=== PATIENT | female | born 1960 | race Caucasian/White ===

== ENCOUNTER 2016-08-28 18:12 | Inpatient (IN) | payer OTHER ==
[~2016-08-28] VITALS: Ht 165.1 cm; Wt 103.9 kg
[~2016-08-28 18:12] MED LIST: VIBRAMYCIN100 MG PO
--- NOTE | 2016-08-28 18:38 | NUR ---
C/O FEELING DEPRESSED, + SI, DENIES HI. OVERDOSED ON PILLS AWHILE AGO. STATES SHE HAS BEEN SOBER FOR 13 YEARS, BUT WANTS TO OUT AND DRINK NOW. ALSO STATES SHE HAS CHRONIC PAIN ALL OVER.
--- NOTE | 2016-08-28 18:50 | NUR ---
SECURITY AT BEDSIDE FOR WANDING AND PATIENT CHANGED INTO BLUE SCRUBS.
--- NOTE | 2016-08-28 18:50 | NUR ---
PT BROUGHT SELF TO ER DUE TO INCREASED DEPRESSION AND NOT FEELING SAFE AT HOME. PT REPORTS SHE HAS ONE PRIOR OVERDOSE AND HAS THOUGHT ABOUT CRASHING HER CAR IN ORDER TO HURT SELF. 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 PT DENIES HI OR SH URGES. PT REPORTS OVER THE LAST FEW WEEKS SHE HAS HAD POOR SLEEP WITH FREQUENT AWAKENINGS AND LOW APPETITE. PT STATES SHE HAS BEEN SOBER FROM ALCOHOL FOR 13.5 YEARS AND DOES NOT USE DRUGS.
--- NOTE | 2016-08-28 19:00 | ED PSYCHIATRIC COMPLAINT ---
See Addendum History of Present Illness General Chief Complaint: Psychiatric Related Complaint Stated Complaint: DEPRESSED +SI Source: patient Exam Limitations: no limitations Vital Signs & Intake/Output Vital Signs & Intake/Output Vital Signs Date Time Temp Pulse Resp B/P B/P Pulse O2 O2 Flow FiO2 Mean Ox Delivery Rate 09/03 0736 97.3 78 140/90 09/02 2006 98.1 88 142/88 09/02 1548 73 120/68 09/02 1243 56 148/81 Triage Note: C/O FEELING DEPRESSED, + SI, DENIES HI. OVERDOSED ON PILLS AWHILE AGO. STATES SHE HAS BEEN SOBER FOR 13 YEARS, BUT WANTS TO OUT AND DRINK NOW. Triage Nurses Notes Reviewed? yes Onset: Gradual Duration: getting worse Timing: recent history Severity: severe Severity Numbers: 10 HPI: Patient is a 55-year-old female with a past medical history of anxiety depression hyperthyroidism who presents emergency room in which she was brought in by a friend for concerns of worsening depression and anxiety and thoughts of harming herself. Patient has been sober of alcohol for 13 years however in the past week patient has been complaining of worsening symptoms as stated above the patient has the urge now to drink and overdose with alcohol. Patient lives in a private residence by herself. Patient does have an establishment with [facility] last evaluation was Friday. Patient is compliant with her medications of Klonopin, Nardil and thyroid medications. Denies any illicit drug use denies any smoking history denies any auditory or visual hallucinations. Patient denies any specific stressors (BRETT SAUL,IMANI) Allergies Coded Allergies: epinephrine (Severe, HEART RACING, HYPOTENSIVE 09/22/15) acetaminophen (From VICODIN) (Intermediate, RASH 09/22/15) hydrocodone (From VICODIN) (Intermediate, RASH 09/22/15) lamotrigine (Intermediate, HIVES 09/22/15) meperidine (From DEMEROL) (UNKNOWN, DO NOT USE OPIOIDS WHILE PT IS ON NARDIL ) Reconcile Medications Albuterol Sulfate (Proair Hfa) 90 MCG HFA.AER.AD 2 PUFF INH 4 TIMES/DAY PRN SHORTNESS OF BREATH (Reported) Aspirin (Ecotrin*) 81 MG TABLET.DR 1 TAB PO AT BEDTIME HEART HEALTH (Reported ) Cholecalciferol (Vitamin D3) (Vitamin D3) (Unknown Strength) TABLET (Unknown Dose) PO DAILY VITAMIN SUPPORT (Reported) Clonazepam (Klonopin) 1 MG TABLET 1 TAB PO TID ANXIETY (Reported) Levothyroxine Sodium (Synthroid) 100 MCG TABLET 1 TAB PO DAILY THYROID PROBLEMS (Reported) Methimazole 5 MG TABLET 1 TAB PO DAILY THYROID PROBLEMS (Reported) Multivitamin (Once Daily) 1 EACH TABLET 1 TAB PO DAILY VITAMIN SUPPORT ( Reported) Phenelzine Sulfate (Nardil) 15 MG TABLET 90 MG PO DAILY DEPRESSION (Reported) (CHASIDY HA,RADHIKA) Past History Travel History Traveled to [place] past 21 day No Medical History Any Pertinent Medical History? 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 No (IMANI ACEVES) Review of Systems Review of Systems Constitutional: Reports: no symptoms. EENTM: Reports: no symptoms. Respiratory: Reports: no symptoms. Cardiovascular: Reports: no symptoms. GI: Reports: no symptoms. Genitourinary: Reports: no symptoms. Musculoskeletal: Reports: no symptoms. Skin: Reports: no symptoms. Neurological/Psychological: Reports: see HPI, anxiety, depressed. Hematologic/Endocrine: Reports: no symptoms. Immunologic/Allergic: Reports: no symptoms. All Other Systems: Reviewed and Negative (IMANI ACEVES) Physical Exam Physical Exam General Appearance: anxious, mild distress Neurological/Psychiatric: anxious Appearance/Memory/Insight: appropriate appearance, appropriate insight, denies illness, disheveled Behavoir/Eye Contact/Speech: cooperative, increased rate of speech, good eye contact Thoughts/Hallucinations: normal thought pattern, no apparent hallucination Comments: HEENT: Normal EENT exam, extraocular motion intact, no nystagmus. Pupils equally round and reactive to light and accommodation. Nose is atraumatic. External auditory canal and Tympanic membranes clear. Pharynx normal. No swelling or edema. Neck: Supple, no lymphadenopathy, normal range of motion without pain or tenderness Back: Nontender, no CVA tenderness. Cardiovascular: Regular rate and rhythms no murmurs rubs or gallops, normal JVP Respiratory: Chest nontender. No respiratory distress.breath sounds clear to auscultation bilaterally Abdomen: Soft, nontender nondistended, no appreciable organomegaly. Normal bowel sounds. No ascites Extremity: No edema, no calf tenderness to palpation, normal and equal pulses. Neuro: Alert oriented x3, motor sensory normal, cranial nerves II through XII grossly intact. Skin: No appreciable rash on exposed skin, skin is warm and dry. Psych: Mood and affect is normal, memory and judgment is normal. SAD PERSONS SAD PERSONS Response Value Age <19 or >45 years? yes 1 Depression/Hopelessness? yes 2 Single//? yes 1 Organized/Serious Attempt yes 2 Social Support? has no support 1 Total 7 SAD PERSONS Done? yes (BRETT SAUL,IMANI) Progress Differential Diagnosis: drug intoxication, drug overdose, drug withdrawal, electrolyte abnormality, encephalitis, hypoglycemia, hypothyroidism, IC hem/mass /tumor, meningitis Plan of Care: Orders Procedure Date/time Status CONTIN. POS. AIRWAY PRESS. CHG 09/02 UNK Complete SUB HSP (15 MIN) 09/01 UNK Complete SUB HSP (15 MIN) 08/31 UNK Complete Current Medications Sig/Kelvin Start time Last Medication Dose Stop Time Status Admin Nystatin 1 AMADOR BID 09/01 1402 AC 09/03 (Mycostatin) 0646 Triamcinolone 1 AMADOR BID 09/01 1402 AC 09/03 Acetonide 0646 (Kenalog) Albuterol Sulfate 2 PUF Q4P PRN 08/30 1100 AC (Ventolin) Methimazole 5 MG DAILY 08/30 1000 AC 09/03 (Tapazole 5 MG 0755 Tablet) Multivitamins 1 TAB DAILY 08/30 1000 AC 09/03 (Theragran Vitamins) 0755 Phenelzine Sulfate 90 MG DAILY 08/30 1000 AC 09/03 (Nardil) 0755 Levothyroxine Sodium 0.1 MG DAILY AC 08/30 0700 AC 09/03 (Synthroid) 0625 Aspirin 81 MG 08/29 2200 AC 09/02 (Aspirin) 2202 Clonazepam 1 MG Q6P PRN 08/29 1230 AC 09/03 (Klonopin 1MG Tab) 09/05 1229 0755 Crisis management evaluated patient and discussed with me that patient's disposition and plan is TO BE ADMITTED TO EITHER [facility] or other facility and is a bed search. I discussed disposition plan with patient Patient was given nighttime Klonopin (IMANI ACEVES) Hand-Off Endorsed To: CHAPARRITA CABRERA MD Endorsed Time: 0100 (IMANI ACEVES) Hand-Off Endorsed To: MIMI JAMES MD Endorsed Time: 0700 Pending: consult (CHAPARRITA CABRERA MD) Comments: 08/29/2016 7:31:15 AM patient signed out to me by Dr. 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 (MIMI JAMES MD) Departure Departure Disposition: STILL A PATIENT Condition: Fair Clinical Impression Primary Impression: Depression Secondary Impressions: Anxiety, Suicide ideation Referrals: AKUA BEAN MD (PCP/Family) Departure Forms: Customer Survey General Discharge Information (IMANI ACEVES) PA/SOLIDWORKS MECHANICAL DESIGNER Co-Sign Statement Statement: ED Attending supervision documentation- [] I saw and evaluated the patient. I have also reviewed all the pertinent lab results and diagnostic results. I agree with the findings and the plan of care as documented in the PA's/SOLIDWORKS MECHANICAL DESIGNER's documentation. [X] I have reviewed the ED Record and agree with the PA's/SOLIDWORKS MECHANICAL DESIGNER's documentation. [] Additions or exceptions (if any) to the PAs/SOLIDWORKS MECHANICAL DESIGNER's note and plan are summarized below: [] (CHASIDY HA,RADHIKA) Psych Admission Note Psychiatric Admission: I have seen and evaluated DIPTI VEGA. I have also reviewed all the pertinent lab results and diagnostic results. DIPTI VEGA will be admitted to our inpatient Psychiatric unit for treatment and care. (MIMI JAMES MD) Critical Care Note Critical Care Note Critical Care Time: 30-74 min (IMANI ACEVES)
--- NOTE | 2016-08-28 19:42 | NUR ---
BLOOD DRAWN AND SENT TO LAB. SST,LAV,KIRAN,BLUE.
[2016-08-28 19:53] LABS: ABSOLUTE BASOPHIL COUNT 0.1 /CUMM (0.0-0.2); ABSOLUTE EOSINOPHIL COUNT 0.3 /CUMM (0.0-0.7); ABSOLUTE GRANULOCYTE CT 6.8 /CUMM (1.4-6.5); ABSOLUTE LYMPH COUNT 2.7 /CUMM (1.2-3.4); BASOPHIL % 0.6 % (0.0-2.0); GRANULOCYTE % 62.8 % (42.2-75.2); HEMATOCRIT 41.1 % (37-47); MEAN CORPUSCULAR HGB 29.4 PG (27.0-31.0); MEAN CORPUSCULAR HGB CONC 32.9 G/DL (33.0-37.0); MEAN CORPUSCULAR VOLUME 89.3 FL (81.0-99.0); MEAN PLATELET VOLUME 7.6 FL (7.4-10.4); PLATELET COUNT 345 /CUMM (130-400); RBC DISTRIBUTION WIDTH 13.2 % (11.5-14.5); WHITE BLOOD CELL COUNT 10.9 /CUMM (4.8-10.8)
--- NOTE | 2016-08-28 20:05 | NUR ---
URINE TRIO SENT TO LAB.
--- NOTE | 2016-08-28 20:30 | NUR ---
CRISIS AT BEDSIDE
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
--- NOTE | 2016-08-28 22:35 | NUR ---
ASSUMED CARE OF PT PER RN BRINAPRIL. PT RESTING WITH RR. PT WILL BE STAYING OVERNIGHT FOR A BEDSEARCH. WILL CONTINUE TO MONITOR, SITTER IN PLACE AT DOOR FOR SAFETY.
--- NOTE | 2016-08-29 01:14 | NUR ---
PT SLEEPING WITH RR, WILL CONTINUE TO MONITOR, CHEST RISE AND FALL NOTED, SITTER IN PLACE IN BH
--- NOTE | 2016-08-29 04:29 | NUR ---
PT SLEEPING WITH RR, WILL CONTINUE TO MONITOR. PT TOSSING AND TURNING. BILATERAL CHEST RISE AND FALL NOTED. SITTER AT DOOR FOR SAFETY.
--- NOTE | 2016-08-29 06:22 | NUR ---
PT HAS VSS CHECKED BY EDEN SCHOFIELD. PT ACKNOWLEDGED THAT [facility] WILL ARRIVE SOON. WILL CONTINUE TO MONITOR, SITTER IN PLACE AT DOOR.
--- NOTE | 2016-08-29 07:48 | NUR ---
PT SLEEPING SITTER REMAINS IN GARCIA
--- NOTE | 2016-08-29 11:42 | NUR ---
PT REFUSED BOTH SYNTHROID AND METHIMAZOLE STATES SHE IS SUPPOSE TO TAKE AT [address] JAMES MADE AWARE
--- NOTE | 2016-08-29 13:32 | NUR ---
PT MEDICATED WITH KLONIPIN PER ORDER. PT ASKING FOR NARCO, INFORMED NARCO IS NOT ORDERED
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
--- NOTE | 2016-08-29 14:30 | NUR ---
REPORT GIVEN TO MÓNICA ACEVEDOROLL SLICING MACHINE TENDER NOTIFIED
[2016-08-29 15:59] VITALS: BP 143/77
--- NOTE | 2016-08-29 15:59 | History & Physical ---
General Information and HPI MD Statement: I have seen and personally examined DIPTI VEGA and documented this H&P. The patient is a 55 year old F who presented with a patient stated chief complaint of depression, SI Source of Information: patient Exam Limitations: no limitations History of Present Illness: 55-year-old female with past medical history significant for depression, anxiety , she would've thyroiditis and hypothyroidism who is admitted to Inpatient Psychiatry with worsening depression as well as suicidal ideation. She has a history of chronic pain in the pelvic area as well as tingling and numbness in bilateral upper extremities that gets better but she hangs her arms down. She wasn't able to mention any triggers except that this pain. She has had history of drug overdose in the past and she felt unsafe. She goes to AA meetings and her sponsor had encouraged her to come to the hospital for evaluation. She does take an antidepressant. She denies any urinary complaints, fevers, chills, cough, cold, nausea, vomiting, vaginal discharge. Allergies/Medications Allergies: Coded Allergies: epinephrine (Severe, HEART RACING, HYPOTENSIVE 09/22/15) acetaminophen (From VICODIN) (Intermediate, RASH 09/22/15) hydrocodone (From VICODIN) (Intermediate, RASH 09/22/15) lamotrigine (Intermediate, HIVES 09/22/15) meperidine (From DEMEROL) (UNKNOWN 09/22/15) phenelzine (From NARDIL) (UNKNOWN 09/22/15) Home Med list Doxycycline Hyclate (Vibramycin) 100 MG CAPSULE 1 CAP PO BID lyme disease Past History Travel History Traveled to [place] past 21 day No Medical History Psychiatric: depression, Hx alcohol use d/o, in remission 13 yrs Endocrine: Cait's thyroiditis, hypothyroidism 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 EENTM: Reports: see HPI. Cardiovascular: Reports: see HPI. Respiratory: Reports: see HPI. GI: Reports: see HPI. Genitourinary: Reports: see HPI. Musculoskeletal: Reports: see HPI. Skin: Reports: see HPI. Neurological/Psychological: Reports: see HPI. Exam & Diagnostic Data Last 24 Hrs of Vital Signs/I&O Vital Signs Date Time Temp Pulse Resp B/P B/P Pulse O2 O2 Flow FiO2 Mean Ox Delivery Rate 08/29 1439 97.6 81 18 130/68 97 Room Air 08/29 1035 96.9 66 18 130/59 93 Room Air 08/29 0620 98.0 74 20 159/79 95 Room Air 08/28 1839 98.2 75 18 171/86 94 Room Air Intake & Output 08/29 1600 08/29 0800 08/29 0000 Intake Total Output Total Balance Patient 229 lb 228 lb Weight Weight Reported by Patient Measurement Method Physical Exam General Appearance Alert, Oriented X3, Cooperative, No Acute Distress Skin No Rashes HEENT PERRLA Neck Supple Cardiovascular Regular Rate, Normal S1, Normal S2 Lungs Clear to Auscultation Abdomen Normal Bowel Sounds, Soft, No Tenderness Neurological Cranial Nerves II through XII: intact Extremities No Edema Last 24 Hrs of Labs/Saul: Laboratory Tests 08/28/162002: Urine Opiates Screen < 100.00, Methadone Screen < 40, Barbiturate Screen < 60, Ur Phencyclidine Scrn < 6.00, Amphetamines Screen 120, U Benzodiazepines Scrn 133, Urine Cocaine Screen < 50, Urine Cannabis Screen < 5.00, Urine Color YEL, Urine Clarity CLEAR, Urine pH 5.5, Ur Specific [place] >= 1.030, Urine Protein NEG, Urine Ketones NEG, Urine Nitrite NEG, Urine Bilirubin NEG, Urine Urobilinogen 0.2, Ur Leukocyte Esterase NEG, Ur Microscopic EXAM NOT REQUIRED, Urine Hemoglobin NEG, Urine Glucose NEG 08/28/161938: Anion Gap 12, Estimated GFR > 60, BUN/Creatinine Ratio 18.6, Glucose 92, Calcium 8.7, Total Bilirubin 0.6, AST 26, ALT 33, Alkaline Phosphatase 91, Total Protein 7.6, Albumin 4.0, Globulin 3.6, Albumin/Globulin Ratio 1.1, TSH 1.540, CBC w Diff NO MAN DIFF REQ, RBC 4.60, MCV 89.3, MCH 29.4, RDW 13.2, MPV 7.6, Gran % 62.8, Lymphocytes % 24.7, Monocytes % 8.9, Eosinophils % 3.0, Basophils % 0.6, Absolute Granulocytes 6.8 H, Absolute Lymphocytes 2.7, Absolute Monocytes 1.0 H, Absolute Eosinophils 0.3, Absolute Basophils 0.1, PUBS MCHC 32.9 L, Serum Alcohol < 10.0 Assessment/Plan Assessment: 55-year-old female with past medical history significant for Cait's thyroiditis, hypothyroidism, depression and history of alcohol use in the past now sober from number of fears who is admitted to Inpatient Psychiatry with worsening depression as well as suicidal ideation. For her hypothyroidism, would recommend continuing her Synthroid as well as her methimazole at her home dose.. It has been checked and is within normal limits. She also takes a baby aspirin as well as multivitamin which I will resume. For the management of her psychiatric issues, I will leave that up to the psychiatrist. She should have an outpatient imaging done for her history of pelvic pain and bilateral upper extremity numbness and tingling as I do think that she might be developing some arthritis in her cervical spine as well as her LS-spine. As Ranked By This Provider Problem List: 1. Anxiety 2. Depression 3. Suicide ideation 4. Hypothyroid Miscellaneous Miscellaneous Documentation Attending Case Discussed With: Rachel Turpin M.D. Primary Care Physician: VIKAS HA,AKUA Nunez Patient sees these Specialists none Level of Patient Care: LEYDA Stacy
[2016-08-29] MEDS ORDERED: NARDIL15 M1 PO (18:35)
[2016-08-29] MEDS ORDERED: METHIMAZOLE5 M1 PO (18:37)
[2016-08-29] MEDS ORDERED: SYNTHROID100 MCG PO (18:38)
[2016-08-29] MEDS ORDERED: ONCE DAILY1 EACH PO (18:42)
[2016-08-29] MEDS ORDERED: VITAMIN D3400 UNI1 PO (18:43)
[2016-08-29] MEDS ORDERED: ASPIRIN EC81 M1 PO (18:44)
[2016-08-29] MEDS ORDERED: KLONOPIN1 M1 PO (18:45)
[2016-08-29] MEDS ORDERED: PROAIR HFA8.5 GM INH (18:46)
[2016-08-29 19:44] VITALS: BP 121/62
--- NOTE | 2016-08-29 19:44 | NUR ---
PT ADMITTED TO CPS FOR EXACERBATION OF DEPRESSION WITH SI. DURING INTERVIEW PT DENIED ACTIVE SI AND AGREED TO TELL STAFF IF THOUGHTS OCCUR. SHE ALSO DENIED ALL HALLUCINATIONS. PT ADMITTED TO FEELING DEPRESSED, HELPLESS, HOPELESS. SHE ALSO EXPERIENCES ANXIETY. PT HAS CHRONIC PAIN IN NECK AND PELVIS. PAIN LEVEL "7" OUT OF 10 WITH 10 BEING THE WORST. VITAL SIGNS STABLE. NO OTHER SOMATIC C/O. MEDICAL HX INCLUDES HASHIMOTOS THYROIDITIS/HYPOTHYROIDISM, APPARENT OSTEONECROSIS OF PELVIS, ASTHMA, SLEEP APNEA WITH CPAP AT , CERVICAL SPINE FUSION, AND SURGERIES OF LEFT SHOULDER AND RIGHT ANKLE. PT ALSO DIAGNOSED WITH LYME DISEASE LAST YEAR WELL.
[2016-08-30 07:56] VITALS: BP 126/73
[2016-08-30 12:15] VITALS: BP 132/70
--- NOTE | 2016-08-30 13:11 | NUR ---
PT IS OUT IN COMMUNITY INTERACTING WITH STAFF AND PEERS. PT IS COMPLIANT AND COOPERATIVE WITH UNIT RULES. PT IS ATTENDING GROUPS. PT IS FOCUSED ON MEDICATION AND GOAL THIS MORNING WAS TO TALK TO DR. PT MOOD IS STABLE WITH A EYUMATHIC TO FULL RANGE AFFECT. PT DENIES SI THOUGHTS.
[2016-08-30 16:29] VITALS: BP 140/101
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
--- NOTE | 2016-08-30 16:51 | SOCIAL WORKER TX PLAN PSYCH ---
Treatment Plan - Please Document: - Evidence that there is ongoing collaboration between - the patient and the interdisciplinary team, - including the patient's active participation and - responsibility for engaging in the treatment regimen, - and that the treatment plan is individualized and - relevant to the patient's conditions. - Treatment plan should reflect documentation indicating - that all active therapeutic efforts are included. Strengths/Capabilities: Motivated for treatment Physical Limitations (Interventions): Dietary restrictions. MAOI diet: low sodium and low tyramine Patient Identified Trmt Goals: "I need to be here I don't feel safe" Discharge Plan: [facility] Problem/Goals #1 Problem #1: suicidal ideation Goal (Short Term): Patient will identify triggers to recent SI Goal (Cook Helper Fruit): Patient will identify strengths and a safety plan for in the community Interventions: patient will be offered medication management with the psychiatrist, groups on symptom management, coping skills, relaxation skills, focus group, goals group. Jewelry Jobber will explore supports/ resources to help provide hope. Jewelry Jobber will assist with aftercare planning. 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 Current GAF: 21 Treatment Team - Responsibilities of members of the treatment team include: - Medication Management- MD or KITCHEN WORKER - Medication Administration and Monitoring- Nurse - Group Therapy- Occupational Therapist - 1:1 Therapy,Disch Planning,family involvement-Jewelry Jobber
--- NOTE | 2016-08-30 18:47 | CPS MD/APRN INITIAL ASSE PSYCH ---
Psychiatric Admission Activated Sludge Attendant's Note Reviewed: Yes Patient Seen and Examined: Yes Identifying Information: This is the 3rd [facility] admission (but the first since 2009) for a 55-year-old longtime partnered childless woman still residing with her "platonic" boyfriend Demian in 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 (who referred her to [facility] for suicidality over 25 years ago). Chief Complaint: "I feel unsafe." Reaction to Hospitalization: ambivalent though signed in as a voluntary patient; not sure she can be helped History of Present Illness Onset of Illness: Patient was referred to the E.D. by an A[employer]. friend after she told the latter she had the urge to drink again after 13.5 full years of sobriety. In recent weeks she had experienced poor sleep with multiple MNA's and poor appetite and energy. She has also experienced recrudescence of suicidal thoughts/thinking and has history of prior suicide attempts via overdose. Circumstances Leading to Admission: Patient's own account of events over the recent months since the first of the year is rather different from that in prescriber's record. She claimed that her dose of Nardil was lowered by her inside sales account executive but there is no record of that in chart but rather that patient missed a second prescriber's appointment already this year and ran out of medication; at the visit during which prescriber learned for the first time of the above she RESTARTED Nardil at 45mg/day (had previously been on 90mg daily); this dose may not have been sufficient to prevent relapse or patient may already have been experiencing recurrent depression from having been off of it entirely. Problem(s) Justifying Need for Admission: --already feeling suicidal and at risk for relapse to drinking after many years which could have increased impulsivity and, therefore, risk of suicide Other HPI: Patient said she has not been admitted to [facility] since more recent [facility] admission for just 3 days in 04/2010; at that time she was suffering recurrent depressive episode with suicidal ideation to overdose (which she had in fact done prior to earlier admission here in 2007). Patient was stabilized and discharged on: Nardil, 75mg/day, Klonopin, 3mg/day (and Synthroid, 88mcg/ day and Tapazole, 5mg/day) to resume ongoing care home outpatient treatment with psychiatrist, Dr. Doc Gage, and therapist, Lelia Frye LCSW. Since Dr. Gage's long term in 2012 (and her therapist no longer accepting her insurance), patient entered treatment in [facility], therapy with Nancy Carreno LCSW, ever since up until this admission and a succession of prescribers, first Ms. Velazquez, then Dr. Myers, Mr. Devine and since 03/2015 Bella Nina APRN. Throughout this period psychotropic medication has been basically with Nardil ( up to 90mg/day) and Klonopin, 3mg/day. It appears she had not been in our IOP at any time. Past Psychiatric History Past Diagnosis(es)- if any: diagnoses at time of more recent [facility] discharge were: MDD, Recurrent, with melancholic features and suicidal ideation; severe but nonpsychotic R/O Anxiety Disorder (vs. 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 She had also seen Ms. Lelia Frye for approximately 18 years. Initial decompensation, depression, hospitalization--at [facility]--in the context of interpersonal conflict with ex-. History of Suicide Attempts or Gestures --past overdoses or threats of same Substance Abuse History: had been alcoholic but in recovery with no drinking in the past 13.5 years, active participation in [employer] (attending 6-7 days a week and "feeling more depressed on day I do not go to a meeting"); other substance abuse denied but has been dependent upon (prescribed) Klonopin for many years--since prior to initial [facility] admission in 2007) Allergies: Coded Allergies: epinephrine (Severe, HEART RACING, HYPOTENSIVE 09/22/15) acetaminophen (From VICODIN) (Intermediate, RASH 09/22/15) hydrocodone (From VICODIN) (Intermediate, RASH 09/22/15) lamotrigine (Intermediate, HIVES 09/22/15) meperidine (From DEMEROL) (UNKNOWN, DO NOT USE OPIOIDS WHILE PT IS ON NARDIL ) Home Med List: Nardil, 90mg daily in AM Klonopin, 1mg 3x/day also: Synthroid ("continue at home dose," per medical attending, Dr. 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/Reproductive: NONE Other Medical Hx: reported to have history of Lyme Disease treated previously with Vibramycin History of MRSA: No History of VRE: No History of CDIFF: No Isolation History: Standard Influenza Vaccine: 04/10/16 Surgical History Surgical History: L SHOULDER SURGERY SPINAL FUSION R ANKLE Psychiatric Family/Social Hx Family History Psychiatric Illness: reported depression in mother and paternal grandmother Substance Use: unknown Suicides: unknown Social History Living Situation: (see above under Identifying Information) Significant Relationships (family/friends): --has had a many year "roommate" situation with a man named Demian who appears to be a close friend and support figure --has sponsor and many friends from [employer] 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 - #1 Recognizing dangerous situations. - #2 Coping Skills. - #3 Basic information about quitting. Status of Tobacco Cessation Counseling: N/A B/C NO TOB USE Cessation Med Status: No Tobacco Use last 30d Alcohol Screening - ETOH screen POS if BAL >=80 or Audit-C>= M4/F3 Audit-C Score from Diag Assess: 0 Blood Alcohol Level: Laboratory Tests 08/28 1938 Toxicology Serum Alcohol (<10 MG/DL) < 10.0 Alcohol Use Screening Results: Neg per Audit C &/or BAL - If ETOH counseling indicated - the following topics are required. - #1 Express concern about the patient's - drinking at unhealthy levels, include informing - of national norms for moderate drinking: - men <= 14 drinks/week, max 4 drinks/occasion - women <= 7 drinks/week, max 3 drinks/occasion - #2 Providing feedback, including linking alcohol to - negative physical effects (liver injury, hypertension) - negative emotional effects (relationship problems and - depression) - negative occupational consequences (reduced work - performance) - #3 Advising the patient to abstain from alcohol or - to drink below national norms for moderate drinking - (as listed above). Status of ETOH Use Counseling: N/A B/C NO ETOH Use Metabolic Screening - Screen if on a Neuroleptic Medication - Metabolic screening should include: - Blood Pressure, BMI, Glucose or Hgb A1c, & a - Lipid profile from within the past 365 days. Metabolic Screening ([x]) Not Applicable, patient not on a neuroleptic. OR () Patient on a neuroleptic(s) . Enter below results for Glucose or Hemoglobin A1C, and lipid panel if obtained during the last 365 days. BMI: 38.100 Blood Pressure: 135/75 Laboratory Results (If applicable): Exam and Plan Mental Status Examination Ambulation Status: without assistance Appearance: well groomed; long young/white ponytail Attitude towards examiner: ambivalent; positive at times, critical at others Psychomotor activity: unremarkable Behavior: generally appropriate Quality of speech: normal Affect: constricted, somewhat tense Mood: dysphoric, irritable, critical/devaluing Suicidal Ideation: denied at this time, acknowledged in past; able/willing to give safety promise/ pledge for [place] Homicidal Ideation: denied Hallucinations: denied Paranoid/Delusional Material: none evident though recounting of recent and remote past colored to paint a picture of herself as a victim of others actions Difficulties with thought organization: not evident Insight: lacking Judgment: fair Orientation: full Cognition: intact Memory Function: variable; while professing a rather poor memory able to speak quite specifically of historical events past and recent though her recollection of events is not always consistent with what can be objectively varified; ?somewhat selective Estimate of intellectual functioning: average Assets/Strengths Patient Identified Assets/Strengths: --13.5 years of sobriety up through the present --stable/supportive relationship with roommate "Demian" for many years --compliant with treatment/medications Impression/Plan Impression and Plan: This middle-aged woman with history of borderline personality, recurrent depressions and alcohol use disorder appears to have been generally stable over the past 7 years (since last [facility] admission) and recent recurrence of depressive syndrome with increased irritability and hysteroid dysphoria appears to have been precipitated by issues around her main medication therapy Nardil which though generally effective for many years has recently suffered some changes/confusion around dosing/prescriptions which seem to be of the patient's own design; why she would be inclined to destabilize herself by allowing her medication to "run out" and not do everything she could think of to acquire her effective Nardil is unclear; she appears to be in a depressive recurrence but precipitation may have been contributed to by her own volitional behavior; she had missed two presecriber's appointments since the beginning of the year (about 50% of them) which may indicate some problem/issue in the patient/prescriber relationship; patient has been treating with current prescriber consistently/ exclusively since 03/26; prior to then she had several different prescribers over a 2 year period. Patient might benefit from a period of more intense outpatient treatment but rather than IOP might benefit from a DBT-focused group therapy. No adjustment in current care home medication therapy appears to be indicated at this time but recent events would tend to support her continuing on this treatment for an indefinite period of time into the future. - Include all active medical diagnosis that require tx DSM 5 Diagnosis(es): Unspecified Depression ("hysteroid dysphoria"), recurrent; severe but nonpsychotic; likely precipitated by lapse in full dosing on maintenance Nardil therapy R/O Unspecified Anxiety (?with panic component) Benzodiazepine Dependence (prescribed Klonopin but without evidence of any abuse of same) Borderline Personality - Initial Tx Plan for Active Psych & Medical Conditions Treatment Plan: --will maintain current treatment with Nardil, 90mg/day and Klonopin, 3mg/day --will monitor for any sleep disturbance and treat accordingly with careful selection of any sleep agent given current/chronic MAOI therapy --will explore "family" meeting with sibling(s), "roommate" Demian or possibly the A.A. 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 Factors: --establishing positive working relationships with inpatient clinician and prescriber --avoidance of getting into any sort of interpersonal conflict while on the intense inpatient [facility] group therapy program
[2016-08-30 20:19] VITALS: BP 112/69
--- NOTE | 2016-08-30 21:35 | NUR ---
PT IS SOCIAL AND COMPLIANT. PLAYS CARDS AND LAUGHS WITH PEERS. PT TALKED TO DR AND COMPLETED GOAL OF ADVOCATING FOR HERSELF. PT DENIES SI AT THIS TIME.
[2016-08-31 07:58] VITALS: BP 116/41
--- NOTE | 2016-08-31 12:08 | NUR ---
PT IS ATTENDING GROUPS AND IS COMPLIANT WITH HER MED REGIME. SHE IS HELPFUL TO HER PEERS AND VERBALIZES HER CONCERNS APPROPRIATELY. SHE HAD A SHORT IRRITABLE PERIOD IN THE MORNING R/T HER MEDS AND THEIR SCHEDULE OTHERWISE HER MOOD IS CALM AND COOPERATIVE AND SHE DENIES ANY THOUGHTS OF SUICIDE OR SELF HARM
[2016-08-31 12:24] VITALS: BP 131/69
--- NOTE | 2016-08-31 12:29 | CP SOUTH PROGRESS NOTE PSYCH ---
Psych (Inpt) Progress Note Progress Note Include the following elements, when applicable: Involvement in the active treatment of the patient with behavioral observations of the patient and the patient's response to the treatment. Review of the ongoing treatment process in the context of the treatment plan. Indication of how multi-disciplinary staff members are carrying out the treatment plan. Plans for future interventions and recommendations for revision of the treatment plan. Liaison with other physicians/providers. Progress Note: Stated that she is slowly getting better. stated that she would tell us when she is feeling better; that in the past when she has early discharges she isolates and does worse. Attending groups, engaging w/ peers and staff. Sleep is fair, appetite is good. Has been writing out her diet for MAOI restrictions; stating that she has been on diet for 22 years and is well aware of her restrictions. MSE: older woman, fair hygiene and grooming. No psychomotor changes or tremor noted. Speech regular rate (to rapid), regular volume and rhythm. Mood is good, affect is full and reactive. Well related, good eye contact. Thought process linear. Thought content is negative for delusions elicited, obsessions, thought to harm self/others. No voices and not internally preoccupied. Insight fair to poor. Judgment appropriate. A: 55 y/o woman w/ hx depressive illness, personality d/o traits (bordeline), presented w/ depressed mood in context of recent self tapering medication, improving clinically. Risk: Hx significant psychiatric sx, tx resistant sx, personality d/o which elevate her chronic risk of harm to self/others. Recent med non adherence and relapse are precipitating factors to her admission. Mitigate risk of harm to self/others w/ education, medication, groups. She is engaged w/ staff and peers, assertive and a self advocate, which are protective factors for her. P: Continue current plan of care. No medication changes indicated. She stated that she has been on every medication over the last two decades and finds that nardil has been the one to maintain her stability. Encourage ongoing abstinence from etoh once in community.
[2016-08-31 16:08] VITALS: BP 135/75
[2016-08-31 19:43] VITALS: BP 131/83
--- NOTE | 2016-08-31 20:55 | NUR ---
PT IS MOSTLY COOPERATIVE WITH STAFF AND PEERS, AND COMPLIANT WITH UNIT RULES. PT IS OFTEN IN [place], INERACTING WELL WITH STAFF AND PEERS. MOOD IS STABLE, AFFECT APPEARS BRIGHT TO FULL RANGE, COMMUNICATION IS ORGANIZED, BUT APPEARS LOUD AT TIMES AND PRESSURED, AND APPETITE IS NORMAL. PT DENIES SI AT THIS TIME.
--- NOTE | 2016-09-01 05:24 | NUR ---
PT IS LESS ANXIOUS, LESS DEPRESSED. PT SOCIAL ON EVENINGS. PT DID SLEEP.
[2016-09-01 07:37] VITALS: BP 138/85
--- NOTE | 2016-09-01 12:04 | NUR ---
PT HAS BEEN CALM AND COOPERATIVE THROUGHOUT THIS SHIFT. SHE IS COMPPLIANT WITH HER MED REGIME AND SHE IS ATTENDING GROUPS. SHE DENIES ANY THOUGHTS OF SUICIDE OR SELF HARM AT THIS TIME. SHE IS HELPFUL TO HER PEERS WITH FULL RANGE OF AFFECT
--- NOTE | 2016-09-01 14:08 | CP SOUTH PROGRESS NOTE PSYCH ---
Psych (Inpt) Progress Note Progress Note Include the following elements, when applicable: Involvement in the active treatment of the patient with behavioral observations of the patient and the patient's response to the treatment. Review of the ongoing treatment process in the context of the treatment plan. Indication of how multi-disciplinary staff members are carrying out the treatment plan. Plans for future interventions and recommendations for revision of the treatment plan. Liaison with other physicians/providers. Progress Note: Stated that she feels horrible today b/c her roommate was talking too much, that she is happy about her room change and hopes to sleep better today. Otherwise, no complaints, is engaged w/ peers, socializing and eating well. MSE: older woman, with appropriate hygiene and grooming. No psychomotor agitation/retardation, no tremor or tics. Speech is wnl. Mood is good and affect is full and reactive. She is pleasant and well related. Her thought process is linear. Thought content neg for any psychotic thinking or disorganization. No evidence of thought to harm self/others. No voices and not internally preoccupied. Insight is adequate. Judgment appropriate. A: 55 y/o woman w/ hx depressive illness, personality d/o traits (bordeline), presented w/ depressed mood in context of recent self tapering medication, improving clinically. Risk: unchanged, some increased risk if she is in fact not sleeping but expect to stabilize w/new roommate. P: Continue current plan of care. No medication changes indicated. Will start on triamcinolone and nystatin cream for under breasts and thighs for skin infection , she stated she takes at home as well, becoming red/irritated.
[2016-09-01 16:10] VITALS: BP 129/91
--- NOTE | 2016-09-01 17:21 | NUR ---
Patient is present in the community, A&O X 3, compliant with medication and group therapies. Patient reported poor night sleep due mostly to compulsive talking from her roommate. patient requested for a room which has been honored patient interact appropriately with other peers and staff members, vital sign is stable and Within the acceptable range. Denies any AH/VH, thought of self-harm and to someone else.
[2016-09-01 19:59] VITALS: BP 135/74
--- NOTE | 2016-09-01 20:55 | NUR ---
PT IS CALM, COOPERATIVE WITH STAFF AND PEERS, AND COMPLIANT WITH UNIT RULES. PT IS OFTEN IN MILIEU, INTERACTIGN WELL WITH OTHERS. MOOD IS STABLE, AFFECT IS BRIGHT TO FULL RANGE, COMMUNICATION IS ORGANIZED AND APPEARS NORMAL IN ALL RESPECTS, AND APPETITE IS NORMAL. PT DENIES SI AT THIS TIME.
--- NOTE | 2016-09-02 06:55 | NUR ---
PT SLEPT VERY WELL. EXCITEABLE, SOCIAL.
[2016-09-02 07:45] VITALS: BP 116/79
--- NOTE | 2016-09-02 11:49 | NUR ---
PT REPORTED THAT SHE FELT "DOWN " TODAY AND WHEN ASKED IF SHE WAS HAVING SUICIDAL THOUGHTS PT STATED "MAYBE" THIS RESPONSE WAS REPORTED THIS MORNING TO THE TEAM IN TEAM MEETING. PT PLANNED TO ATTEND GROUPS TODAY AND SHE IS INTERACTING WITH HER PEERS IN AN APPROPRIATE MANNER. SHE IS COMPLIANT WITH HER MED REGIME
[2016-09-02 12:43] VITALS: BP 148/81
--- NOTE | 2016-09-02 15:21 | SOCIAL WORKER PROG NOTE PSYCH ---
Social Work Progress Note Progress Note Paulette (Becky) talked about how she was a "crying mess" on Friday and feels like today is her first day here. She said over the weekend she had roommate issues and was having a lot of difficulty, because her roommate wouldn't be quiet. She was moved to a different room yesterday. Her friend Demian visited over the weekend. She stated that her sponsor informed her that she wouldn't be around the next few days due to needing to help her sister in [place]. Becky was understanding and said she has a second sponsor that she can rely on in case she needs to call someone. Her presentation was improved since Friday, but she still indicated that she had thoughts to go drink and "end it all". She is engaging in groups today. Talked about following [facility] at [facility] as her discharge plan. She has never done [facility] and is wondering about the services. I let her know we could talk more about it tomorrow.
[2016-09-02 15:48] VITALS: BP 120/68
--- NOTE | 2016-09-02 18:44 | CP SOUTH PROGRESS NOTE PSYCH ---
Psych (Inpt) Progress Note Progress Note Progress Note: I discussed this patient's progress to date, current mental status, treatment process in the context of the treatment plan, and discharge planning with staff/ team in the daily morning inpatient team meeting. I also met with the patient myself in individual session. A total of 15 minutes was spent with the patient with more than 50% spent in counseling and/or coordination of care. SUBJECTIVE: "I don't feel safe. If I went out the door now I'd go to a bar, numb myself, then get in the car and drive fast until I hit something." OBJECTIVE: Current Medications Sig/Kelvin Start time Last Medication Dose Route Stop Time Status Admin Albuterol Sulfate 2 PUF Q4P PRN 08/30 1100 AC INH Aspirin 81 MG 2200 08/29 2200 AC 09/01 PO 2125 Clonazepam 1 MG Q6P PRN 08/29 1230 AC 09/02 PO 09/05 1229 1440 Levothyroxine Sodium 0.1 MG DAILY AC 08/30 0700 AC 09/02 PO 0628 Methimazole 5 MG DAILY 08/30 1000 AC 09/02 PO 0803 Multivitamins 1 TAB DAILY 08/30 1000 AC 09/02 PO 0803 Nystatin 1 AMADOR BID 09/01 1402 AC 09/02 TOP 0802 Phenelzine Sulfate 90 MG DAILY 08/30 1000 AC 09/02 PO 0803 Triamcinolone 1 AMADOR BID 09/01 1402 AC 09/02 Acetonide TOP 0803 Vital Signs Date Time Temp Pulse Resp B/P B/P Pulse O2 O2 Flow FiO2 Mean Ox Delivery Rate 09/02 1548 73 120/68 09/02 1243 56 148/81 09/02 0745 97.5 71 116/79 09/01 1959 97.6 70 135/74 ASSESSMENT: Patient states that she has suffered from depression since her early teenage years. States she's been on many different medications, but always returns to Nardil because that is what seems to help the best. Declines any other medication trials, stating that she's been on everything in the past. She says that she is now ready to engage in therapy. She used an Alcoholics Anonymous metaphor stating that she needs to "peel back the onion", and start speaking about the things that harm her. Until today she had just been "crying and crying." After inpatient discharge she would like to attend [facility]. Depression:/; Anxiety:10/ (with 10 the worst.) Denies homicidal ideation, auditory hallucinations, visual hallucinations, paranoid ideation. Patient endorses suicidal ideation. States that she feels safe while on the unit, and is able to contract for safety while here. She reports that she had her first good night sleep last night. Reports that her previous roommate talked in her sleep all night. Last night she was moved to a different room, and the patient started using a CPAP, and the result was a good night's sleep. Reports that her appetite is very good. Speech is well articulated, goal-directed, average in rate, volume and tone. Calm, pleasant and cooperative. Alert and oriented 3. Logical. The patient understands the risks/benefits/side effects of the medication and is agreeable to continue taking them. PLAN: Continue with current management as patient is improving. Continue to provide support and encouragement.
[2016-09-02 20:07] VITALS: BP 142/88
--- NOTE | 2016-09-03 04:46 | NUR ---
Slept well overnight , no complaints offered, cpap in use.
[2016-09-03 07:36] VITALS: BP 140/90
--- NOTE | 2016-09-03 10:58 | NUR ---
PT IS COMPLIANT AND COOPERATIVE WITH UNIT RULES. PT IS OUT THE COMMUNITY INTERACTING WELL WITH STAFF AND PEERS. PT IS ATTENDING ALL GROUPS. PT FELT A LITTLE "DOWN" THIS MORNING BUT REPROTED BETTER THEN YESTERDAY. PT DENIES SI THOGUHTS.
[2016-09-03 12:31] VITALS: BP 135/68
[2016-09-03 16:06] VITALS: BP 137/60
--- NOTE | 2016-09-03 17:36 | SOCIAL WORKER PROG NOTE PSYCH ---
Social Work Progress Note Progress Note Paulette (Becky) is having difficulty being around other patients on the unit. Alot of what she is focusing on is related to others behavior. We discussed this observation and ways to cope. She apparently walked out of one of the groups because she couldn't deal with the other person in group today. She reports that this in not the "norm" for her and she is usually a little more tolerable of others. She admits needing to watch what she says as to not cause a fight. She is walking away from people currently to avoid confrontation. Continues to state that she is extremely sad and anxious. Rates herself at a 10 for sadness (1-10, 10 being worst). She continues to have thoughts about drinking so it would give her courage to end her life. We discussed IOP, due to the Klonopin she would not be eligible for the dual program, but because she hasn't been drinking maybe she would be accepted in the mental health program. I asked if she would like to have anyone in for a supportive meeting? She said no. She has friends as supports, but doesn't want them involved in her treatment here. Insurance review done with [employer]- She is covered until Wednesday 09/06.
--- NOTE | 2016-09-03 18:58 | CP SOUTH PROGRESS NOTE PSYCH ---
Psych (Inpt) Progress Note Progress Note Include the following elements, when applicable: Involvement in the active treatment of the patient with behavioral observations of the patient and the patient's response to the treatment. Review of the ongoing treatment process in the context of the treatment plan. Indication of how multi-disciplinary staff members are carrying out the treatment plan. Plans for future interventions and recommendations for revision of the treatment plan. Liaison with other physicians/providers. Progress Note: PSYCHIATRIST NOTE, 09/03/2016: I discussed this patient's progress to date, current mental status, treament and discharge planning with staff team today in the daily morning ITTM and our medical student Velia and I met again with patient in individual session (as we had during initial assessment on 08/30/2016). Patient reported experiencing distress related to a recent roommate "who never stopped talking" and two other female patients whose behavior she finds vulgar and rude. Patient continues to report high anxiety and has been using the Q6H PRN Klonopin 3x/day; she requested that a regular schedule of 1mg 3x/day be instituted. She is tolerating the full 90mg/day dose of Nardil well and reports generally feeling better though still preoccupied with thoughts of suicide at times when she is not actively involved with others on the unit milieu. Patient shows no evidence of psychotic features. Her rather dramatic/histrionic presentation has mollified to some extent though she can still be "set off" by what appear to be minor incidents or inconveniences. We are actively recommending patient transition back to OPS through the IOP, likely the behavioral health program due to the fact that though she has had recent (and some continuing) cravings due to increased anxiety and dysphoria she has actually elvin stable in recovery for many years and has a sponsor "and two back-ups" as well.
[2016-09-03 20:35] VITALS: BP 139/80
--- NOTE | 2016-09-03 21:59 | NUR ---
PATIENT HAS BEEN PRESENT IN [facility], ATTEDING GROUPS AND INTERACTING WITH PEERS; PATIENT MOOD HAS REMAINED IRRITABLE, WITH BURSTS OF ANGER FROM TIME TO TIME, ESPECIALLY WHEN OBSERVING A PEER'S INTRUSIVE BEHAVIOR; PATIENT DID ATTEND THE AA MEETING ON THE UNIT AND REPORTED THAT IT WAS VERY HELPFUL FOR HER; VITAL SIGNS WNL.
--- NOTE | 2016-09-04 06:32 | NUR ---
PATIENT WAS UP TO BATHROOM ONCE, OTHERWISE SLEPT ALL NIGHT.
[2016-09-04 08:28] VITALS: BP 133/71
--- NOTE | 2016-09-04 12:21 | SOCIAL WORKER PROG NOTE PSYCH ---
Social Work Progress Note Progress Note Paulette, Dr. Espinosa and I met together this morning to discuss discharge plans. Paulette looks like she is starting to feel better today. She said she slept well and she is starting to feel better. She seems a bit more hopeful about things today and is looking forward to attending the IOP. Talked about her nurturing others and wanting to help people, she tends to act as a "mother hen". I asked if she had an interest in volunteering? She said she has thought about it and it is a goal. She is hoping to get into a nursing facility in [place]. She is interested in doing arts and crafts with residents. We discussed her thoughts about discharging tomorrow and having an [facility] intake appt. scheduled for tomorrow. She feels good about that plan. Called and set up an intake for 11:45am.
[2016-09-04 12:40] VITALS: BP 136/83
--- NOTE | 2016-09-04 12:57 | NUR ---
Pt is present on the unit and social with peers and staff and overall appropriate, mood is stable yet irritable at times, full range affect, vital signs stable, attended planning group: reporting + mood/sleep/attitude. Patient also attended focus group and spoke briefly and shared, no issues or complaints reported or observed.
--- NOTE | 2016-09-04 13:15 | CP SOUTH PROGRESS NOTE PSYCH ---
Psych (Inpt) Progress Note Progress Note Include the following elements, when applicable: Involvement in the active treatment of the patient with behavioral observations of the patient and the patient's response to the treatment. Review of the ongoing treatment process in the context of the treatment plan. Indication of how multi-disciplinary staff members are carrying out the treatment plan. Plans for future interventions and recommendations for revision of the treatment plan. Liaison with other physicians/providers. Progress Note: PSYCHIATRIST NOTE, 09/04/2016: I discussed this patient's progress to date, current mental status, treatment and discharge planning with staff team today in the daily morning ITTM and Mellisa Costa LCSW, and I met with her together in individual session; I also spoke with patient's prescriber, Bella Nina APRN, about patient's progress and plan for referral to the [facility] with which she concurs. Ms. Nina and I also spoke about the vital need for patient to reinstate her utilization of C-PAP machine at home; patient claims her machine "broke" but to my knowledge has made no consistent effort to either repair or replace it or to schedule an interval sleep study to update the settings and acquire a new machine; patient claims she cannot afford to do this but really she cannot afford not to in order to protect her cardiovascular health, as well as mental health which requires sound sleep/good sleep quality; patient has repeatedly requested sleep aids from her prescriber; I pointed out that such drugs should actually be considered contraindicated in the case of untreated Obstructive Sleep Apnea due to their respiratory depressant effects on an already impaired airway/breathing effectiveness. Mellisa Costa LCSW, and I met with patient together in individual session today. Patient continued to describe "issues" with other patients and appears to be "acting the nurse" on the milieu and tending to other patients rather than dealing with her own personal issues. We all agreed that she has just about received maximum benefit from hospitalization; we will plan discharge for tomorrow once she has been assigned an intake at [facility] for before the end of this week. Patient's affect was brighter and mood closer to euthymia today, suicidal ideation/preoccupation receding, sleep much improved with use of the hospital supplied C-PAP machine; patient had gotten up early this morning to use the bathroom and could not get her mask back on and after that did not sleep as soundly; I have no knowledge that she approached any night staff member for help with her mask.
[2016-09-04 16:25] VITALS: BP 137/68
[2016-09-04 20:04] VITALS: BP 137/72
--- NOTE | 2016-09-04 21:09 | NUR ---
PT IS VISIBLE ON UNIT, SOCIALIZING WITH PEERS AND SITTING QUIETLY IN LOUNGE. ATTENDED WRAP UP MEETING THIS EVENING. COOPERATIVE AND COMPLIANT WITH STAFF. NO COMPLAINTS OR SI REPORTED. PT HAS A STABLE MOOD AND FULL RANGE AFFECT.
--- NOTE | 2016-09-05 05:56 | NUR ---
PT SLEPT WITH CPAP. PT PREPARING FOR DC.
[2016-09-05 07:34] VITALS: BP 126/66
--- NOTE | 2016-09-05 10:25 | SOCIAL WORKER PROG NOTE PSYCH ---
Social Work Progress Note Progress Note Paulette feels ready to go. Denies any SI today and stated she would be up front if she didn't feel ready. She is looking forward to starting IOP. Her plans for tonight include cooking a nice meal for herself and doing her nails. She will attend her regular AA meeting in the morning. Talked about taking care of herself and reaching out to her supports if she needs to. She needs help with getting a ride home today. I called [facility] but she was not eligible. Staff was able to get some money to support a cab ride home after her intake at [facility] today. Paulette was very appreciative. Called [facility] and scheduled the ride.
--- NOTE | 2016-09-05 11:19 | NUR ---
PT IS PRESENT ON THE UNIT AND SOCIAL AND APPROPRIATE WITH PEERS AND STAFF, MOOD STABLE WITH FULL RANGE AFFECT, WHEN ASKED DIRECTLY DENIES SI/HI/HALLUCINATIONS WITH NO ISSUES OR COMPLAINTS REPORTED OR OBSERVED. INFORMATION PACKET RE: DEPRESSION & SI GIVEN TO PT. PT RESOURCE GUIDE AND W-10 REVIEWED WITH PT AND REPORTS + UNDERSTAND OF THE ABOVE AND MEDICATION REGIMENT AND MOTIVATED RE: F/U DISCHARGE PLANNING. REPORTS OVERALL IMPROVEMENT IN MOOD, BEHAVIOR, SLEEP AND APPETITE AND IS SCHEDULED FOR DISCHARGE TO [facility] @ ABOUT 11:45AM.
--- NOTE | 2016-09-05 11:33 | CP SOUTH PROGRESS NOTE PSYCH ---
Psych (Inpt) Progress Note Progress Note Include the following elements, when applicable: Involvement in the active treatment of the patient with behavioral observations of the patient and the patient's response to the treatment. Review of the ongoing treatment process in the context of the treatment plan. Indication of how multi-disciplinary staff members are carrying out the treatment plan. Plans for future interventions and recommendations for revision of the treatment plan. Liaison with other physicians/providers. Progress Note: PSYCHIATRIST NOTE (DISCHARGE), 09/05/2016: I discussed this patient's progress to date, current mental status, treatment and discharge plans with staff team today in the daily morning ITTM and also met with her again myself in individual session prior to discharging her seamlessly directly to intake at [facility] (chosen because she has been clean and sober and regularly participating in A.A. for an extended interval of years) scheduled for today at 11:45am. Patient will also be resuming her regular attendance at her A.A. home meeting tomorrow morning, . Patient agrees that her first prior should be either having her C-PAP machine repaired or replacing it promptly, as sound sleep is crucial to her general, as well as mental, health. Patient is bright and cheerful today, euthymic, future-oriented, showing no evidence of current suicidal or homicidal ideation, plans, intent or impulses and well aware of her safety plan should she ever in future come to believe she is at acute risk of harming herself or others. Patient continues to do well on her full dose of Nardil (90mg daily in AM) and Klonopin (1mg 3x/day); medications have required no adjustment during this admission. and patient told me she has sufficient supplies at home to continue to take: Nardil, 90mg daily in AM Klonopin, 1mg 3x/day Synthroid, 100mg daily in AM Tapazole, 5mg daily aspirin, 81mg daily (patient has never been a smoker of tobacco/cigarettes)
--- NOTE | 2016-09-05 12:49 | DISCHARGE SUMMARY REPORT-PSYCH ---
Visit Information Visit Dates/Diagnosis' Admission Date: 08/29/16 Discharge Date: 09/05/16 Reason for Admission: "I feel unsafe." Psy Discharge Primary Diag: Unspecified Depression, Recurrent; severe with "hysteroid dysphoria"; episode contributed to by lapse in patient taking her full maintenance dose of Nardil for an interval Psy Discharge Secondary Diag: R/O Unspecified Bipolar, Depressed R/O Bipolar II Disorder Unspecified Anxiety Disorder with symptoms of HARSHAL and panic Benzodiazepine Dependence prescribed Klonopin; without evidence of abuse borderine personality organization; with histrionic features Hospital Course Significant Lab Findings: cholesterol = 231, triglycerides = 234, LDL = 139; wbc = 10.9, 62.8% gran with 6.8% gran abs, 8.9% mono with 1.0% mono abs; ANA MARIA = less than 10.0; urine for drugs of abuse--negative (for complete details of all normal range laboratory data from this admission, see the electronic medical record) Course Complications: none Consultations: patient was seen for an admission medical H&P by Ghada Turpin M.D., and followed medically during this admission by the hospitalist staff/[facility] medical attending physicians Allergies: Coded Allergies: epinephrine (Severe, HEART RACING, HYPOTENSIVE 09/22/15) acetaminophen (From VICODIN) (Intermediate, RASH 09/22/15) hydrocodone (From VICODIN) (Intermediate, RASH 09/22/15) lamotrigine (Intermediate, HIVES 09/22/15) meperidine (From DEMEROL) (UNKNOWN, DO NOT USE OPIOIDS WHILE PT IS ON NARDIL ) Hospital Course/TX Response: (see also, all admission/initial assessments, daily M.D./HOSPICE NURSE and NANOFABRICATION SPECIALIST progress notes from this admission in the electronic medical record) This patient with history of recurrent depression, alcohol use disorder and borderline personality organization appears to have been generally stable over the past 7 years (since most recent [facility] admission). She appears to have recently suffered a relapse of depressive syndrome with increased irritability and hysteroid dysphoria possibly precipitated or at least contributed to by issues related to her main maintenance psychotropic medication therapy, Nardil, which had been effective for many years; she suffered some changes/confusion around dosing/prescriptions for which patient seems mainly personally responsible but why she would be inclined to risk destabilizing herself by allowing her medication to "run out" and not do everything she could to acquire her effective anti-depressant medication was unclear; she had missed 2 prescriber's appointments since the beginning of this year (half of those scheduled) which might suggest some problem/issue in the patient/prescriber relationship; patient had been treating with current prescriber consistently/ exclusively since 03/2015; prior to then, she had had several different prescribers over a 2 year period. Patient was maintained on Nardil, 90mg/day throughout this admission without any complications/side effects experienced, reported or observed. We also did not think it the right time to try to taper patient's albeit significant admission dose of Klonopin. At length, patient agreed to begin her aftercare in the [facility] and transition back to [facility] appointments or possibly referral to [place] or other [facility] groups. I repeated counselled patient with regard to the importance of her not allowing her C-PAP treatment to lapse for any reason and noted that there was really no point in trying to "treat" her sleep problem in any other way until she is consistently using her C-PAP throughout the night, particularly no reason to prescribe sedating medication at to an individual with untreated KIMI; patient agreed to make it her first priority after discharge to have her own C- PAP machine repaired or replaced promptly and to consider scheduling another sleep study to see if her machine settings need any adjustment. Sound sleep is central to this patient continuing to recover and remain well. By date of discharge, patient was bright/cheerful, euthymic, positive and future-oriented, grateful for her care and treatment on [facility] and thanking others; there was no evidence of suicidal or homicidal ideation, plans, intent or impulses and patient was well aware of her safety plan should she ever in future come to believe she is at acute risk of harming herself or others. Discharge HBIPS - Tobacco Use Treatment Offered Post DC Medications Offered: NA-No Tob Use >30 days Post DC Tobacco Treatment Plan: NA-No Tobacco use >30days - EtOH/Drug Use D/O Treatment Offered Post DC Medications Offered: NA-No EtOH/Drug Use D/O Post DC EtOH/SubAbuse TX Plan: NA-No EtOH/Drug Use D/O Metabolic Screening - Screen if on a Neuroleptic Medication - Metabolic screening should include: - Blood Pressure, BMI, Glucose or Hgb A1c, & a - Lipid profile from within the past 365 days. Metabolic Screening ([X]) Not Applicable, patient not on a neuroleptic. OR () Patient on a neuroleptic(s) . Enter below results for Glucose or Hemoglobin A1C, and lipid panel if obtained during the last 365 days. BMI: 38.100 Blood Pressure: 126/66 Laboratory Results (If applicable): Discharge Instructions General Discharge Information Discharge Medications: Discharge Medications (dose, route, frequency, indications): (see alsoCarmen discharge progress note of 09/05/2016) patient told me she currently has sufficient supplies at home to continue taking : Nardil, 90mg daily in AM (anti-depressant) Klonopin, 1mg 3x/day (anxiolytic) and: Synthroid, 100mcg (0.1mg) daily in AM (thryoid supplement) Tapazole, 5mg daily (to normalize thyroid functioning) aspirin, 81mg daily (heart health) (patient has never been a smoker of tobacco and has been completely abstinent from alcohol for many years with the help of regular attendance at local A.A. meetings and frequent contact with sponsor) Multiple Neuroleptics: ([x]) Not Applicable OR Document below three failed attempts at monotherapy, or a plan to taper to monotherapy, or augmentation of Clozapine. () Patient's Diet: heart healthy MAOI diet (with which she is very familiar and consistently adherent) Patient's Activity: without restrictions DC Disposition: to home with "roommate Demian" Recommendations: I would recommend that after an interval of outpatient stabilization attempt be made to begin a slow taper of current high dose Klonopin therapy. As has been noted, I very strongly urged patient to see that her C-PAP machine is repaired or replaced as soon as possible; it might also be a good time for her to consider having another sleep study to see if the settings on her C-PAP machine need adjustment for optimal benefit. I would advise against adding any more sedating medications to "help with sleep" until and unless patient is consistently utilizing C-PAP machine. Referred To: Patient was referred directly to intake with [facility] at 11 :45am on day of discharge, 09/05/2016. She will resume attendng her regular A.A. "home meeting" and communicate frequently with her A.A. sponsor. Copies To: NAYELY HA,EWA; VIKAS HA,AKUA Nunez
== END 2016-09-05 11:45 | DRG 885 ==
LOC: ERH 18:12 → CP SOUTH 08-29 11:51 → ERHI 08-29 11:51 → CP SOUTH 08-29 15:10
PROVIDERS: Physician Assistant; ADMIT Psychiatry & Neurology Psychiatry
DX: F33.3 Major depressive disorder, recurrent, severe with psychotic symptoms (principal); F13.20 Sedative, hypnotic or anxiolytic dependence, uncomplicated; F41.1 Generalized anxiety disorder; F60.3 Borderline personality disorder
CPT/HCPCS: 80307; 81003; G0463; G0480; J3490

== ENCOUNTER 2017-06-08 11:55 | Emergency (ER) | payer OTHER ==
[~2017-06-08] VITALS: Ht 165.1 cm; Wt 112.0 kg
[~2017-06-08 11:55] MED LIST changes: +ASPIRIN EC81 M1 PO; +KLONOPIN1 M1 PO; +METHIMAZOLE5 M1 PO; +NARDIL15 M1 PO; +ONCE DAILY1 EACH PO; +PROAIR HFA8.5 GM INH; +SYNTHROID100 MCG PO; +VITAMIN D3400 UNI1 PO
--- NOTE | 2017-06-08 16:02 | ED GENERAL ADULT ---
History of Present Illness General Chief Complaint: General Adult Stated Complaint: NUMBNESS AND TINGLES ON BOTH ARMS Source: patient, old records Exam Limitations: no limitations Vital Signs & Intake/Output Vital Signs & Intake/Output Vital Signs Date Time Temp Pulse Resp B/P B/P Pulse O2 O2 Flow FiO2 Mean Ox Delivery Rate 06/08 1815 97.2 74 16 132/80 96 Room Air 06/08 1619 99 Room Air 06/08 1246 97.0 74 15 133/78 95 Room Air Room Air Allergies Coded Allergies: epinephrine (Severe, HEART RACING, HYPOTENSIVE 06/08/17) acetaminophen (From VICODIN) (Intermediate, RASH 06/08/17) hydrocodone (From VICODIN) (Intermediate, RASH 06/08/17) lamotrigine (Intermediate, HIVES 06/08/17) meperidine (From DEMEROL) (UNKNOWN, DO NOT USE OPIOIDS WHILE PT IS ON NARDIL ) Reconcile Medications Albuterol Sulfate (Proair Hfa) 90 MCG HFA.AER.AD 2 PUFF INH 4 TIMES/DAY PRN SHORTNESS OF BREATH (Reported) Aspirin (Ecotrin*) 81 MG TABLET.DR 1 TAB PO AT BEDTIME HEART HEALTH (Reported ) Cholecalciferol (Vitamin D3) (Vitamin D3) (Unknown Strength) TABLET (Unknown Dose) PO DAILY VITAMIN SUPPORT (Reported) Clonazepam (Klonopin) 1 MG TABLET 1 TAB PO TID ANXIETY (Reported) Levothyroxine Sodium (Synthroid) 100 MCG TABLET 1 TAB PO DAILY THYROID PROBLEMS (Reported) Methimazole 5 MG TABLET 1 TAB PO DAILY THYROID PROBLEMS (Reported) Multivitamin (Once Daily) 1 EACH TABLET 1 TAB PO DAILY VITAMIN SUPPORT ( Reported) Phenelzine Sulfate (Nardil) 15 MG TABLET 90 MG PO DAILY DEPRESSION (Reported) Triage Note: PT TO ED FOR C/C OF BILATERAL ARM TINGLING OR NUMBNESS X 1 YEAR BUT WORSE LAST NIGHT. ALSO, PT REPORTS NAUSEA AND TIGHTNESS IN UPPER MIDDLE BACK BETWEEN SHOULDER BLADES THAT STARTED WHILE IN WAITING ROOM. SOME SOB LAST NIGHT. Triage Nurses Notes Reviewed? yes Onset: Gradual Duration: worse persistent since (1 year) Timing: recent history Injury Environment: home Severity: moderate Severity Numbers: 5 No Modifying Factors: none HPI: Patient is a 56-year-old female with history of depression, anxiety, fibromyalgia presenting to the emergency department with intermittent tingling in her hands and feet that come and go. She reports symptoms are random. Denies any associated pain. Currently symptomatic. Primary care just started her on gabapentin past week or so. She is taking 300 mg in the morning. Patient does report that she is tapering down off Klonopin. Denies any seizures. No fevers chills nausea vomiting chest pain or shortness of breath. Nothing seems to make the symptoms that are worse. (Lizzy Golden) Past History Travel History Traveled to [place] past 21 day No Medical History Any Pertinent Medical History? 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 No (Lizzy Golden) Review of Systems Review of Systems Constitutional: Reports: no symptoms. Comments Review of systems: See HPI, All other systems negative. Constitutional, no chills fever or weight loss HEENT: No visual changes no sore throat no congestion Cardiovascular: No chest pain ,palpitation , orthopnea or ankle swelling Skin, no jaundice no rashes Respiratory: No dyspnea cough sputum or hemoptysis GI: No nausea no vomiting : No dysuria No hematuria Muscle skeletal: no back pain, no neck pain, Neurologic: no confusion Psych: No stress anxiety or depression,. Heme/endocrine: No bruising no bleeding no polyuria or polydipsia Immunology: No splenectomy or history of AIDS (Lizzy Golden) Physical Exam Physical Exam General Appearance: well developed/nourished, no apparent distress, alert, awake , comfortable Comments: Well-developed well-nourished person in no acute distress HEENT: Pupils equally round and reactive to light and accommodation. Nose is atraumatic. External auditory canal and Tympanic membranes clear. Pharynx normal. No swelling or edema. Neck: Supple, no lymphadenopathy, normal range of motion without pain or tenderness, no C-spine tenderness. Back: Nontender Cardiovascular: Regular rate and rhythms no murmurs rubs or gallops, normal JVP Respiratory: Chest nontender. No respiratory distress.breath sounds clear to auscultation bilaterally Extremity: No edema, no calf tenderness to palpation, normal and equal pulses. Range of motion of upper and lower extremities without difficulty or pain. Civil Engineering Designer strength is equal and symmetric bilaterally. Muscular strength is 5 out of 5 in upper and lower extremities. Neuro: Alert oriented x3, motor sensory normal in the upper and lower extremities, cranial nerves II through XII grossly intact. Cerebellar testing is unremarkable. Skin: No appreciable rash on exposed skin, skin is warm and dry. Psych: Appears anxious, memory and judgment is normal. Core Measures ACS in differential dx? No CVA/TIA Diagnosis: No Sepsis Present: No Sepsis Focused Exam Completed? No (Lizzy Golden) Progress Differential Diagnoses I considered the following diagnoses in my evaluation of the patient: Nonspecific radicular pain, peripheral neuropathy, electrolyte abnormality, medication side effects, fibromyalgia Plan of Care: Orders Procedure Date/time Status TROPONIN LEVEL 06/08 1255 Complete COMPREHENSIVE METABOLIC PANEL 06/08 1255 Complete CBC WITHOUT DIFFERENTIAL 06/08 1255 Complete EKG 06/08 1250 Active Laboratory Tests 06/08/17 1649: Anion Gap 13, Estimated GFR > 60, BUN/Creatinine Ratio 20.0, Glucose 94, Calcium 9.4, Total Bilirubin 0.6, AST 28, ALT 25, Alkaline Phosphatase 72, Troponin I < 0.01, Total Protein 7.1, Albumin 4.0, Globulin 3.1, Albumin/Globulin Ratio 1.3, CBC w Diff NO MAN DIFF REQ, RBC 4.11 L, MCV 90.2, MCH 29.4, MCHC 32.6 L, RDW 13.0, MPV 7.4, Gran % 53.9, Lymphocytes % 32.8, Monocytes % 9.9 H, Eosinophils % 2.8, Basophils % 0.6, Absolute Granulocytes 5.1, Absolute Lymphocytes 3.1, Absolute Monocytes 0.9 H, Absolute Eosinophils 0.3, Absolute Basophils 0.1 Initial ED EKG: NSR Comments: She will follow up with PCP. Labs unremarkable. Likely nonspecific radicular pain. will continue gabapentin.no deficetis. (Lizzy Golden) Departure Departure Time of Disposition: 1744 Disposition: HOME OR SELF CARE Condition: Stable Clinical Impression Primary Impression: Paresthesias Referrals: Kellen London MD (PCP/Family) Additional Instructions: Continue taking gabapentin as previously prescribed. Follow-up with your primary care physician tomorrow. Increase fluids. Return for worsening symptoms or concerns. Departure Forms: Customer Survey General Discharge Information (Lizzy Golden) PA/DIGITAL PRODUCER Co-Sign Statement Statement: ED Attending supervision documentation- I saw and evaluated the patient. I have also reviewed all the pertinent lab results and diagnostic results. I agree with the findings and the plan of care as documented in the PA's/DIGITAL PRODUCER's documentation. x I have reviewed the ED Record and agree with the PA's/DIGITAL PRODUCER's documentation. [] Additions or exceptions (if any) to the PAs/DIGITAL PRODUCER's note and plan are summarized below: [] (Ainsley HA,Amor) Critical Care Note Critical Care Note Critical Care Time: non-applicable (Lizzy Golden)
[2017-06-08 16:56] LABS: ABSOLUTE BASOPHIL COUNT 0.1 /CUMM (0.0-0.2); ABSOLUTE EOSINOPHIL COUNT 0.3 /CUMM (0.0-0.7); ABSOLUTE GRANULOCYTE CT 5.1 /CUMM (1.4-6.5); ABSOLUTE LYMPH COUNT 3.1 /CUMM (1.2-3.4); ABSOLUTE MONOCYTE COUNT 0.9 /CUMM (0.10-0.60); BASOPHIL % 0.6 % (0.0-2.0); EOSINOPHIL % 2.8 % (0-5); GRANULOCYTE % 53.9 % (42.2-75.2); HEMATOCRIT 37.1 % (37-47); MEAN CORPUSCULAR HGB 29.4 PG (27.0-31.0); MEAN CORPUSCULAR HGB CONC 32.6 G/DL (33.0-37.0); MEAN CORPUSCULAR VOLUME 90.2 FL (81.0-99.0); MEAN PLATELET VOLUME 7.4 FL (7.4-10.4); PLATELET COUNT 355 /CUMM (130-400); RED BLOOD CELL CT 4.11 /CUMM (4.20-5.40); WHITE BLOOD CELL COUNT 9.4 /CUMM (4.8-10.8)
[2017-06-08 18:15] VITALS: BP 132/80
== END 2017-06-08 18:16 ==
LOC: ERH 11:55
PROVIDERS: Emergency Medicine
DX: R20.2 Paresthesia of skin (principal)
CPT/HCPCS: 93005; 93010

== ENCOUNTER 2017-11-04 09:59 | Inpatient (IN) | payer OTHER ==
[~2017-11-04] VITALS: Ht 165.1 cm; Wt 107.6 kg
--- NOTE | 2017-11-04 10:22 | ED PSY CRISIS COLLATERAL NOTE ---
Collateral Note Collateral Note Family/Inform/Goyo Contacts: Recieved call from Bella Nina APRN from [facility]. Pt came over from OPS after she was recommeded by Bella as the patient was presenting vastly different from her baseline. Today pt presents with disorganized thoughts, tearful, anxious, and intermittant thoughts to hurt herself. Pt has been in OPS for a long time. She has had 5 CPS admissions from [id number]. She is diagnosed with Major Depressive Disorder, Bordeline Personality Disorder, and Alochol Use Disoder, in full remission. Bella believes she may have an underlying Bipolar Disorder. Pt is prescribed Nardil 90mg, Klonopin, 1.5 mg at night, Gabepentin 300 mg in the morning and 100 mg at night. Pt also has an over active thyroid whom she sees an endrocrinologist.
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
[2017-11-04 10:48] LABS: ABSOLUTE BASOPHIL COUNT 0.1 /CUMM (0.0-0.2); ABSOLUTE EOSINOPHIL COUNT 0.3 /CUMM (0.0-0.7); ABSOLUTE GRANULOCYTE CT 5.8 /CUMM (1.4-6.5); ABSOLUTE LYMPH COUNT 2.8 /CUMM (1.2-3.4); ABSOLUTE MONOCYTE COUNT 0.8 /CUMM (0.10-0.60); BASOPHIL % 0.7 % (0.0-2.0); EOSINOPHIL % 2.6 % (0-5); GRANULOCYTE % 60.4 % (42.2-75.2); MEAN CORPUSCULAR HGB 29.5 PG (27.0-31.0); MEAN CORPUSCULAR HGB CONC 33.6 G/DL (33.0-37.0); MEAN CORPUSCULAR VOLUME 87.7 FL (81.0-99.0); MEAN PLATELET VOLUME 7.8 FL (7.4-10.4); RBC DISTRIBUTION WIDTH 13.1 % (11.5-14.5); RED BLOOD CELL CT 4.45 /CUMM (4.20-5.40); WHITE BLOOD CELL COUNT 9.7 /CUMM (4.8-10.8)
[2017-11-04 11:08] LABS: PLATELET COUNT 378 /CUMM (130-400)
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
[2017-11-04] MEDS ORDERED: SYNTHROID88 MCG PO (13:55)
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
[2017-11-05 11:46] VITALS: BP 149/95
[2017-11-05] MEDS ORDERED: IBUPROFEN800 M1 PO (13:50)
[2017-11-05 16:22] VITALS: BP 136/88
[2017-11-05 19:54] VITALS: BP 143/81
--- NOTE | 2017-11-05 22:01 | History & Physical ---
General Information and HPI MD Statement: I have seen and personally examined DIPTI VEGA and documented this H&P. The patient is a 57 year old F who presented with a patient stated chief complaint of depression and suicidal ideation. Source of Information: patient, old records Exam Limitations: no limitations History of Present Illness: The patient is a 57 yo female with h/o hypothyroidism/Cait's thyroiditis, asthma/bronchitis, KIMI, osteonecrosis of the pelvic bone, PTSD, h/o EtOH abuse ( 13 yrs ago), who was sent in for admission by her OP psych CURVE SAW OPERATOR with c/o significant mood changes since a medication adjustment was done- depression and suicidal ideation. She has a h/o multiple suicide attempts in the past. Allergies/Medications Allergies: Coded Allergies: epinephrine (Severe, HEART RACING, HYPOTENSIVE 06/08/17) acetaminophen (From VICODIN) (Intermediate, RASH 06/08/17) hydrocodone (From VICODIN) (Intermediate, RASH 06/08/17) lamotrigine (Intermediate, HIVES 06/08/17) meperidine (From DEMEROL) (UNKNOWN, DO NOT USE OPIOIDS WHILE PT IS ON NARDIL ) Home Med list Albuterol Sulfate (Proair Hfa) 90 MCG HFA.AER.AD 2 PUFF INH 4 TIMES/DAY PRN SHORTNESS OF BREATH (Reported) Aspirin (Ecotrin*) 81 MG TABLET.DR 1 TAB PO AT BEDTIME HEART HEALTH (Reported ) Cholecalciferol (Vitamin D3) (Vitamin D3) 400 UNIT TABLET 1,000 IU PO DAILY VITAMIN SUPPORT (Reported) Clonazepam (Klonopin) 1 MG TABLET 1.5 TAB PO BEDTIME ANXIETY (Reported) Ibuprofen 800 MG TABLET 1 TAB PO Q8 PRN PAIN (Reported) Levothyroxine Sodium (Synthroid) 88 MCG TABLET 1 TAB PO DAILY THYROID Methimazole 5 MG TABLET 1 TAB PO DAILY THYROID PROBLEMS (Reported) Multivitamin (Once Daily) 1 EACH TABLET 1 TAB PO DAILY VITAMIN SUPPORT ( Reported) Phenelzine Sulfate (Nardil) 15 MG TABLET 90 MG PO DAILY DEPRESSION (Reported) Compliance With Home Meds: GOOD Past History Travel History Traveled to [place] past 21 day No Medical History Neurological: NONE, NERVE PAIN EENT: allergies Cardiovascular: NONE Respiratory: asthma, bronchitis, obstructive sleep apnea Gastrointestinal: NONE Hepatic: NONE Renal: NONE Musculoskeletal: OSTEONECROSIS OF PELVIC BONE Psychiatric: anxiety, depression, Hx alcohol use d/o, in remission OVER 15 yrs PTSD Endocrine: NONE (ON BOTH LEVOTHY & METHIMAZOLE), Cait's thyroiditis, hypothyroidism Blood Disorders: NONE Cancer(s): NONE 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 . Relation not specified for: Coronary artery disease in father FHx: Parkinson's disease Psychosocial History Where do you live? Home Services at Home: None Primary Language: Ethiopian Smoking Status: Former Smoker ETOH Use: alcoholic, (RECOVERING ETOH X 16YRS) Illicit Drug Use: denies illicit drug use Functional Ability ADLs Independent: dressing, eating, toileting, bathing. Ambulation: independent Review of Systems Review of Systems Constitutional: Denies: no symptoms. EENTM: Denies: no symptoms. Cardiovascular: Denies: no symptoms. Respiratory: Denies: no symptoms. GI: Denies: no symptoms. Genitourinary: Denies: no symptoms. Musculoskeletal: Denies: no symptoms. Skin: Denies: no symptoms. Neurological/Psychological: Reports: anxiety, depressed, emotional problems. Hematologic/Endocrine: Denies: no symptoms. Immunologic/Allergic: Denies: no symptoms. Exam & Diagnostic Data Last 24 Hrs of Vital Signs/I&O Vital Signs Date Time Temp Pulse Resp B/P B/P Pulse O2 O2 Flow FiO2 Mean Ox Delivery Rate 11/05 1953 97.3 81 143/81 11/05 1622 76 136/88 11/05 1146 97.7 63 149/95 11/05 0944 98.1 70 18 152/74 98 Room Air 11/05 0735 97.9 72 18 164/78 97 Room Air 11/05 0108 97.2 68 20 146/85 97 Room Air Intake & Output 11/05 1600 11/05 0800 11/05 0000 Intake Total Output Total Balance Patient 237 lb Weight Physical Exam General Appearance Alert, Oriented X3, Cooperative, Mild Distress (ANXIETY) Skin No Rashes, No Breakdown, No Significant Lesion HEENT Atraumatic, PERRLA, EOMI, Mucous Membr. moist/pink Neck Supple, No JVD, No thryomegaly (THYROID SL FIRM/SPONGY), +2 Carotid Pulse wo Bruit, No LAD Cardiovascular Regular Rate, Normal S1, Normal S2, No Murmurs Lungs Clear to Auscultation, Normal Air Movement Abdomen Normal Bowel Sounds, Soft, No Tenderness, No Hepatospenomegaly, No Masses Neurological Exam Findings: Normal Speech, Strength at 5/5 X4 Ext, Normal Tone, Sensation Intact, Cranial Nerves 3-12 NL, Reflexes 2+ Cranial Nerves II through XII: INTACT Extremities No Clubbing, No Cyanosis, Normal Pulses, +TR-1+ EDEMA BILAT Vascular Normal Pulses, Pulses Symmetrical Last 24 Hrs of Labs/Saul: Laboratory Tests 11/04/17 1055: Urine Opiates Screen < 100, Methadone Screen < 40, Barbiturate Screen < 60, Ur Phencyclidine Scrn < 6.00, Amphetamines Screen 206, U Benzodiazepines Scrn < 85, Urine Cocaine Screen < 50, Urine Cannabis Screen < 5.00, Urine Color YEL, Urine Clarity HAZY H, Urine pH 6.0, Ur Specific [place] >= 1.030, Urine Protein NEG, Urine Ketones NEG, Urine Nitrite NEG, Urine Bilirubin NEG, Urine Urobilinogen 0.2, Ur Leukocyte Esterase NEG, Ur Microscopic SEDIMENT EXAMINED, Urine WBC RARE , Ur Epithelial Cells MANY H, Urine Bacteria MANY H, Urine Hemoglobin NEG, Urine Glucose NEG 11/04/17 1039: Anion Gap 11, Estimated GFR > 60, BUN/Creatinine Ratio 20.0, Glucose 91, Calcium 8.9, Total Bilirubin 0.4, AST 29, ALT 35, Alkaline Phosphatase 98, Total Protein 7.6, Albumin 4.0, Globulin 3.6, Albumin/Globulin Ratio 1.1, TSH 0.039 L, Free T4 1.15, CBC w Diff NO MAN DIFF REQ, RBC 4.45, MCV 87.7, MCH 29.5, MCHC 33.6, RDW 13.1, MPV 7.8, Gran % 60.4, Lymphocytes % 28.5, Monocytes % 7.8, Eosinophils % 2.6, Basophils % 0.7, Absolute Granulocytes 5.8, Absolute Lymphocytes 2.8, Absolute Monocytes 0.8 H, Absolute Eosinophils 0.3, Absolute Basophils 0.1, Serum Alcohol < 10.0 Assessment/Plan Assessment: Impression/Plan: #Depression/Anxiety/Suicidal Ideation- sent in by her OP CURVE SAW OPERATOR after some changes in medications. Plan: Admit to [facility]/Psychiatry. Meds as per psychiatry. #Hypothyroid/Cait's Thyroiditis- Patient sees Dr. Adryan Brown in [place] (Endocrinology). She states she has had difficulty regulating levels and is on both Levothyroxine and Methimazole. Dr. Brown adjusts her medications. Current Free T4 is normal and TSH is slightly suppressed suggesting subclinical hyperthyroid on her current meds. The patient states that her Facility Assistant controls her meds and she wishes them to be given as he has prescribed. Plan: Will continue her Levothyroxine and Methimazole as she has been on. May consider contacting her Facility Assistant to verify her meds, etc. #H/O Asthma/Bronchitis- lungs clear at present. Uses Albuterol MDI prn. Plan: Albuterol MDI q4h prn wheeze/dyspnea (does not need at present). #Obstructive Sleep Apnea- I neglected to ask her if she uses CPAP. Plan: Will discuss with patient in morning if she uses CPAP at home. #Lower Extremity Edema- patient blames on Gabapentin and this is a possible side effect. Discussed options of using compression stockings and possibly low dose diuretic (HCTZ), however patient declined and stated she would refuse Gabapentin. Plan: As per psychiatry. As Ranked By This Provider Problem List: 1. Anxiety 2. Suicide ideation 3. Hypothyroid 4. Depression 5. History of asthma Miscellaneous Miscellaneous Documentation Attending Case Discussed With: Catherine HA,Aleksandr Primary Care Physician: Kellen London MD Patient sees these Specialists Dr. Adryan Brown (Endocrinology- [facility]) Level of Patient Care: [facility] Consults Needed: Consulting Physician: None Attending MD Review Statement Attending Statement Attending MD Statement: reviewed EMR data (avail), discussed with nursing, amended to note Attending Assessment/Plan: As above.
[2017-11-06 07:30] VITALS: BP 139/89
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
[2017-11-06 12:18] VITALS: BP 126/50
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
--- NOTE | 2017-11-06 15:33 | SOCIAL WORKER PROG NOTE PSYCH ---
See Addendum Social Work Progress Note Progress Note Patient initially appeared very guarded during this meeting. She discussed anger/frustration about her experience in the ED prior to [facility] admission. Patient stated that she came to the hospital due to reactions to Gabapentin ( edema and nightmares) and also reported memory loss due to Klonopin. Patient stated that she has been treated by Bella Nina APRN and Sally Gore LCSW ( in the absence of Nancy Carreno) at [facility]. She would like to return to [facility] upon discharge and is not interested in IOP. She stated that she has spoken with Nancy about EMDR and will continue to have a conversation with her outpatient treators regarding this. Patient was unable to identify any specific triggers, however stated that "it has been building up" and identified being intolerant to heat and sun (due to being prescribed Nardil) as one signficant trigger. Patient stated that she also attends AA Friday-Friday and has been "clean and sober" for 15 years. She reported alcohol as her drug of choice and stated that she used to use MJ occassionally, however, states no use for the past 15 years. Patient stated that she attended IOP last year and found it helpful. She also reported three rounds of ECT (with last round occurring somewhere between 1991 and 1992). Patient denied SI today and yesterday; she denied HI/AH/VH. She was unable to identify someone that she would like to invite for a family meeting. She stated that she would like to discharge tomorrow. Patient presented as depressed. Initially she was tearful and guarded, however, these subsided as the meeting progressed. Patient was cooperative and spontaneous during this meeting.
[2017-11-06 15:58] VITALS: BP 146/76
[2017-11-06 20:10] VITALS: BP 141/63
[2017-11-07 07:30] VITALS: BP 143/50
--- NOTE | 2017-11-07 08:33 | Patient Discharge Instructions ---
Psych Discharge Inst General Discharge Information Reason for Admission: Per Bella Nina APRN's note (11/04/17): "Pt. was distraught, labile, periods of tearfulness and uncontrollable crying. She endorses increased irritability/anger, poor sleep and periods of nodding out while driving, several instances of suicidal thoughts earlier this week" Psy Discharge Primary Diag+ MDD Psy Discharge Secondary Diag+ Other Specified Pers. DO Summary Tests/Major Procedures Lab ALT 35 U/L 11/04/17 1039 Albumin/Globulin Ratio 1.1 % 11/04/17 1039 Alkaline Phosphatase 98 U/L 11/04/17 1039 Free T4 1.15 ng/dL 11/04/17 1039 Globulin 3.6 gm/dL 11/04/17 1039 TSH 0.039 uIU/mL L 11/04/17 1039 Studies Pending at DC: None Patient Instructions Contact Information Your Psychiatrist on [facility] was Catherine HA,Aleksandr * If you are experiencing an emergency related to this hospitalization, please call [phone] to contact the treating psychiatrist or the psychiatrist-on- call. * To Request a copy of your medical records, please contact the Medical Records Department at [phone]. * To request results of studies pending at the time of discharge, please call [phone]. * Continue your Medications until directed to stop by your Healthcare provider. General Medication Information Please continue to take your new medications and your continued home medications , unless otherwise indicated on your discharge medication list, or unless directed by your MD or OPERATIONS AND MAINTENANCE SUPERVISOR to stop them. Special Instructions Diet Regular Activity Normal - Tobacco Use Treatment Offered Post DC Medications Offered: Not Applicable Post DC Tobacco Treatment Plan: Not Applicable - EtOH/Drug Use D/O Treatment Offered Post DC Medications Offered: NA-No EtOH/Drug Use D/O Post DC EtOH/SubAbuse [place] Plan: NA-No EtOH/Drug Use D/O Metabolic Screening Not Applicable, patient not on a neuroleptic. Advance Directives Does the Patient have Medical Advance Directives No/Refused further info Does Pt have Psychiatric Advance Directives? No/Refused further info Does Patient have a Designated Surrogate Decision Maker: No Information About Psychiatric Advance Directives Provided? Refused Discharge Plan Post Hospital Treatment Plan: OPS
--- NOTE | 2017-11-07 12:29 | CP SOUTH PROGRESS NOTE PSYCH ---
Psych (Inpt) Progress Note Progress Note Vital Signs Date Time Temp Pulse B/P 11/07 0730 97.7 77 143/50 11/06 2009 98.7 76 141/63 Mental Status Examination: Patient was alert & oriented to time, place, and person. She was calm, cooperative, and much less irritablem. She showed normal psychomotor activity. She did not exhibit any abnormal or bizarre behaviors. Her speech was normal/not pressured, not slurred. She reported that she is in a much better mood/ less depressed, no wishing and no sense of hopelessness, denied thoughts of suicide. Denied homicidal ideation, denied hallucinations, denied feeling paranoid, there were no delusions during the interview. Coherent, there was no thought disorder. Partial insight. Reasonable judgment. Did not seem to have difficulty with information processing. Did not seem to have short-term memory impairment. Assessment: 57-year-old single white female with long history of major depressive disorder presented after contact with her outpatient provider, Bella Nina APRN, and voicing that she was wishing that she was . Diagnoses: Major Depressive Disorder, recurrent, severe Other specified personality disorder (mixed borderline traits, narcissistic traits, dependent traits, etc.) Treatment Plan: Discharge Home, follow up with Bella Nina APRN Major depressive disorder, recurrent, severe Other specified personality disorder (mixed borderline traits, narcissistic traits, dependent traits, etc.) Treatment Plan: Discharge Home, follow up with Bella Nina APRN Estimate of intellectual functioning: Average Assets/Strengths Patient Identified Assets/Strengths: The patient is self advocating and resourceful Impression/Plan Impression and Plan: 57-year-old single white female with long history of major depressive disorder presented after contact with her outpatient provider, Bella Nina APRN, and voicing that she was wishing that she was . - Include all active medical diagnosis that require tx DSM 5 Diagnosis(es): Major depressive disorder, recurrent, severe Other specified personality disorder (mixed borderline traits, narcissistic traits, dependent traits, etc.) - Initial Tx Plan for Active Psych & Medical Conditions Treatment Plan: Inpatient psychiatric care with safety checks every 15 minutes and Continue 19 mg of Nardil every morning Continue Klonopin 1/2 mg at bedtime Nursing assessments, vital signs, biopsychosocial assessment by social work , Collateral information, aftercare planning, Group therapy, milieu therapy, and activities therapy, Patient will be seen daily by a psychiatrist.
--- NOTE | 2017-11-07 12:30 | DISCHARGE SUMMARY REPORT-PSYCH ---
Visit Information Visit Dates/Diagnosis' Admission Date: 11/05/17 Discharge Date: 11/07/17 Reason for Admission: Per Bella Nina APRN's note (11/04/17): "Pt. was distraught, labile, periods of tearfulness and uncontrollable crying. She endorses increased irritability/anger, poor sleep and periods of nodding out while driving, several instances of suicidal thoughts earlier this week" Psy Discharge Primary Diag: MDD Psy Discharge Secondary Diag: Other Specified Pers. DO Hospital Course Significant Lab Findings: Lab Free T4 1.15 ng/dL 11/04/17 1039 TSH 0.039 uIU/mL L 11/04/17 1039 Course Complications: Patient did not have any complications while she was on the inpatient psychiatric unit. Consultations: The patient had a history and physical examination while she was on the inpatient psychiatric unit. Please refer to the patient's electronic health record for the details of the H&P. Allergies: Coded Allergies: epinephrine (Severe, HEART RACING, HYPOTENSIVE 06/08/17) acetaminophen (From VICODIN) (Intermediate, RASH 06/08/17) hydrocodone (From VICODIN) (Intermediate, RASH 06/08/17) lamotrigine (Intermediate, HIVES 06/08/17) meperidine (From DEMEROL) (UNKNOWN, DO NOT USE OPIOIDS WHILE PT IS ON NARDIL ) Hospital Course/TX Response: 11/06/2017: Impression and Plan: 57-year-old single white female with long history of major depressive disorder presented after contact with her outpatient provider, Bella Nina APRN, and voicing that she was wishing that she was . Diagnosis(es): Major depressive disorder, recurrent, severe Other specified personality disorder (mixed borderline traits, narcissistic traits, dependent traits, etc.) Treatment Plan: Inpatient psychiatric care with safety checks every 15 minutes and Continue 19 mg of Nardil every morning Continue Klonopin 1/2 mg at bedtime Nursing assessments, vital signs, biopsychosocial assessment by social work Collateral information, aftercare planning, Group therapy, milieu therapy, and activities therapy, Patient will be seen daily by a psychiatrist. 11/07/2017: Mental Status Examination: Patient was alert & oriented to time, place, and person. She was calm, cooperative, and much less irritablem. She showed normal psychomotor activity. She did not exhibit any abnormal or bizarre behaviors. Her speech was normal/not pressured, not slurred. She reported that she is in a much better mood/ less depressed, no wishing and no sense of hopelessness, denied thoughts of suicide. Denied homicidal ideation, denied hallucinations, denied feeling paranoid, there were no delusions during the interview. Coherent, there was no thought disorder. Partial insight. Reasonable judgment. Did not seem to have difficulty with information processing. Did not seem to have short-term memory impairment. Assessment: 57-year-old single white female with long history of major depressive disorder presented after contact with her outpatient provider, Bella Nina APRN, and voicing that she was wishing that she was . Diagnoses: Major Depressive Disorder, recurrent, severe Other specified personality disorder (mixed borderline traits, narcissistic traits, dependent traits, etc.) Treatment Plan: Discharge Home, follow up with Bella Nina APRN Discharge HBIPS - Tobacco Use Treatment Offered Post DC Medications Offered: Not Applicable Post DC Tobacco Treatment Plan: Not Applicable - EtOH/Drug Use D/O Treatment Offered Post DC Medications Offered: NA-No EtOH/Drug Use D/O Post DC EtOH/SubAbuse TX Plan: NA-No EtOH/Drug Use D/O Metabolic Screening - Screen if on a Neuroleptic Medication - Metabolic screening should include: - Blood Pressure, BMI, Glucose or Hgb A1c, & a - Lipid profile from within the past 365 days. Metabolic Screening Not Applicable, patient not on a neuroleptic. Discharge Instructions General Discharge Information Multiple Neuroleptics: Not Applicable Discharge Diet Regular Discharge Activity Normal DC Disposition: Home Referrals Ordered Referrals OUTPATIENT PSYCHIATRY 11/17/17 248/250 [facility], [place] [id number] [facility] Outpatient [address] [place] [address] Intake appointment: 11/17/17, at 8:30am with Sally Gore LCSW Outpatient Psychiatry 11/20/17 248/250 [place] [address] [facility] Outpatient [address] [place] [address] Medication Evaluation: 7/12/18, at 4pm with Dr. Elliott Prescriptions Continue taking these medications: Phenelzine Sulfate (Nardil) 15 MG TABLET 90 Milligram ORAL DAILY Comments: Last Taken:11/07/17 Time:9am Methimazole (Methimazole) 5 MG TABLET 1 Tablet ORAL DAILY Comments: Last Taken:11/07/17 Time:6am Multivitamin (Once Daily) 1 EACH TABLET 1 Tablet ORAL DAILY Comments: Last Taken:11/05/17 Time:4pm Cholecalciferol (Vitamin D3) (Vitamin D3) 400 UNIT TABLET 1,000 International Unit ORAL DAILY Comments: Last Taken:11/06/17 Time:4pm Aspirin (Ecotrin*) 81 MG TABLET. 1 Tablet ORAL AT BEDTIME Comments: Last Taken:11/06/17 Time:8pm Clonazepam (Klonopin) 1 MG TABLET 1.5 Tablet ORAL BEDTIME Comments: Last Taken:11/06/17 Time:10pm Albuterol Sulfate (Proair Hfa) 90 MCG HFA.AER.AD 2 PUFF Inhale through mouth 4 TIMES A DAY as needed for SHORTNESS OF BREATH Levothyroxine Sodium (Synthroid) 88 MCG TABLET 1 Tablet ORAL DAILY Qty = 30 Comments: Last Taken:11/07/17 Time:6am Ibuprofen (Ibuprofen) 800 MG TABLET 1 Tablet ORAL EVERY 8 HOURS as needed for PAIN Studies Pending at Discharge None Copies To: Bella Nina APRN
--- NOTE | 2017-11-07 17:13 | SOCIAL WORKER PROG NOTE PSYCH ---
See Addendum Social Work Progress Note Faxed Referral(s) Referred To: [facility] Transition of Care Documents sent: Health Summary Faxed to: [facility] Fax #: [phone] Faxed by: Eduar Bauer LCSW Date faxed: 11/07/17 Time Faxed: [phone]
== END 2017-11-07 11:30 | DRG 881 ==
LOC: ERH 09:59 → ERHI 11-05 11:13 → CP SOUTH 11-05 11:13 → ENTRNSPT 11-05 11:26 → EDTRNSPTSTS 11-05 11:28 → EDTRNSPT 11-05 11:28 → CP SOUTH 11-05 11:34 → CMPTRNSPT 11-05 11:41 → ENRESERV 11-05 23:59 → CP SOUTH 11-06 11:09
PROVIDERS: Physician Assistant
DX: F32.9 Major depressive disorder, single episode, unspecified (principal); F60.9 Personality disorder, unspecified
CPT/HCPCS: 80307; 81001; G0463; G0480; J3101